=== PATIENT | female | born 1995 | race Two or more races ===

== ENCOUNTER 2019-06-14 22:05 | Emergency (ER) | payer OTHER ==
[2019-06-14] MEDS ORDERED: ONDANSETRON 4 MG TAB.RAPDIS PO ONE (22:24)
--- NOTE | 2019-06-14 22:28 | ER Document Report ---
ED Medical Screen (RME) - General Chief Complaint: Abdominal Pain Stated Complaint: ABDOMINAL PAIN Time Seen by Provider: 06/14/19 22:22 Mode of Arrival: Ambulatory Information source: Patient Notes: 24-year-old female presents to ED for complaint of abdominal pain epigastric since 1 PM. She states then it is now starting to go to the left. She states she is vomited times twice. She states she has had no urinary symptoms. She states food did make it where she had a club soda and some big chips. Last menstrual period was 3 weeks ago. 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 Mother states this is her only medical history I have greeted and performed a rapid initial assessment of this patient. A comprehensive ED assessment and evaluation of the patient, analysis of test results and completion of medical decision making process will be conducted by an additional ED providers. - Related Data Allergies/Adverse Reactions: No Known Allergies Allergy (Verified 06/14/19 22:19) Physical Exam - Vital signs Vitals: Temp Pulse Resp BP Pulse Ox 97.8 F 78 18 124/68 100 06/14/19 22:11 06/14/19 22:11 06/14/19 22:11 06/14/19 22:11 06/14/19 22:11 Course - Vital Signs Vital signs: Temp Pulse Resp BP Pulse Ox 97.8 F 78 18 124/68 100 06/14/19 22:11 06/14/19 22:11 06/14/19 22:11 06/14/19 22:11 06/14/19 22:11 - Laboratory Result Diagrams: 06/14/19 22:30 06/14/19 22:30 Laboratory results interpreted by me: 06/14/19 22:30 WBC 10.8 H Eos % (Auto) 7.0 H Absolute Eos (auto) 0.8 H
[2019-06-14 22:42] LABS: ABSOLUTE BASOPHILS # (AUTO) 0.1 10^3/uL (0.0-0.2); ABSOLUTE EOSINOPHILS # (AUTO) 0.8 10^3/uL (0.0-0.6); ABSOLUTE LYMPHOCYTES (AUTO) 2.6 10^3/uL (0.5-4.7); ABSOLUTE MONOCYTES (AUTO) 0.6 10^3/uL (0.1-1.4); ABSOLUTE NEUT (AUTO) 6.7 10^3/uL (1.7-8.2); BASOPHILS % (AUTO) 0.9 % (0-2); HEMATOCRIT 39.6 % (36.0-47.0); HEMOGLOBIN 13.4 g/dL (12.0-15.5); LYMPHOCYTES % (AUTO) 23.9 % (13-45); MEAN CORPUSCULAR HEMOGLOBIN 29.9 pg (27.0-33.4); MEAN CORPUSCULAR HGB CONC 33.8 g/dL (32.0-36.0); MEAN CORPUSCULAR VOLUME 89 fl (80-97); MONOCYTES % (AUTO) 5.9 % (3-13); PLATELET COUNT 310 10^3/uL (150-450); RED BLOOD COUNT 4.47 10^6/uL (3.72-5.28); RED CELL DISTRIBUTION WIDTH 13.2 % (11.5-14.0); SEGMENTED NEUTROPHILS % (AUTO) 62.3 % (42-78); TOTAL CELLS COUNTED % (AUTO) 100 %; WHITE BLOOD COUNT 10.8 10^3/uL (4.0-10.5)
[2019-06-14 23:03] LABS: ALKALINE PHOSPHATASE 46 U/L (38-126); ANION GAP 13 (5-19); ASPARTATE AMINO TRANSFERASE 21 U/L (14-36); BILIRUBIN,DIRECT 0.1 mg/dL (0.0-0.4); BILIRUBIN,TOTAL 0.8 mg/dL (0.2-1.3); BLOOD UREA NITROGEN 9 mg/dL (7-20); CARBON DIOXIDE 25 mmol/L (22-30); CHLORIDE 103 mmol/L (98-107); GLUCOSE 94 mg/dL (75-110); POTASSIUM 4.5 mmol/L (3.6-5.0); TOTAL PROTEIN 8.3 g/dL (6.3-8.2)
[2019-06-14] MEDS ORDERED: ONDANSETRON HCL INJ/PF 4 MG/2 ML SDV IV ONE (23:20)
[2019-06-14] MEDS ORDERED: FAMOTIDINE INJ/PF 20 MG/2 ML SDV IV ONE (23:21)
[2019-06-14] MEDS ORDERED: DICYCLOMINE HCL 20 MG TABLET PO ONE (23:21)
--- NOTE | 2019-06-14 23:25 | ER Document Report ---
ED General - General Chief Complaint: Abdominal Pain Stated Complaint: ABDOMINAL PAIN Time Seen by Provider: 06/14/19 22:22 Mode of Arrival: Ambulatory TRAVEL OUTSIDE OF THE [place] IN LAST 30 DAYS: No - HPI Notes: 24-year-old female presents with abdominal pain. Relatively rapid onset of supraumbilical midline abdominal pain around 1 PM. Waxing and waning throughout the day but not getting better. Sometimes worse motion, sometimes worse with eating although she only ate once. No history of prior episodes. No frequency urgency or dysuria. No fever. No diarrhea. No recent travel. Last normal menstruation was approximately 3 weeks ago. No other modifying factors, no other associated symptoms, no other provocative or palliative factors. - Related Data Allergies/Adverse Reactions: No Known Allergies Allergy (Verified 06/14/19 22:19) Past Medical History - General Information source: Patient - Social History Smoking Status: Never Smoker Chew tobacco use (# tins/day): No Frequency of alcohol use: None Drug Abuse: None Family History: Reviewed & Not Pertinent Patient has suicidal ideation: No Patient has homicidal ideation: No - Medical History Medical History: Other Notes: Remote history of HSP Review of Systems - Review of Systems Notes: Review of systems as in the history of present illness, otherwise negative x 10 systems. Physical Exam - Vital signs Vitals: Temp Pulse Resp BP Pulse Ox 97.8 F 78 18 124/68 100 06/14/19 22:11 06/14/19 22:11 06/14/19 22:11 06/14/19 22:11 06/14/19 22:11 - Notes Notes: General: Well developed . HEENT: Normocephalic, atraumatic. Pupils equal round reactive to light. No JVD. Chest: No trauma. Respiratory: Good air exchange, normal excursion. Cardiac: Regular rhythm. No murmurs or gallops. Abdomen: Soft, benign. On distracted examination there is minimal epigastric and right upper quadrant tenderness r. Back: No asymmetry or gross abnormality. Motor: Grossly normal power and tone. Neurologic: Alert, nonfocal. Cranial nerves II-12 are intact. Sensation intact. Vascular: Well perfused. Normal peripheral pulses. Skin: No petechiae or purpura. Course - Re-evaluation Re-evalutation: 06/14/19 23:24 Patient was evaluated by the [facility] provider prior to my evaluation. Studies / interventions have been ordered by this provider and may still be pending. 24-year-old female with epigastric and right upper quadrant pain and tenderness. Broad official diagnosis includes underlying biliary tract disease, peptic ulcer disease, gastritis, doubt appendicitis, doubt obstetrical emergency. We will proceed with serial exams, basic laboratory evaluation, fluids, antiemetics and analgesics, reassess. Right upper quadrant ultrasound. 06/15/19 01:10 Labs reviewed, CBC, chemistries, lipase unremarkable. Ultrasound shows no evidence of acute abnormality. Patient had modest improvement does continue to have symptoms but serial exam showed benign abdomen. This point I believe she is safe for discharge home with close outpatient follow-up. She will return immediately if substantial worsening or fever. I suspect she may have an element of gastritis or peptic ulcer disease in light of this we will trial her on Protonix, Carafate. - Vital Signs Vital signs: Temp Pulse Resp BP Pulse Ox 97.8 F 78 18 124/68 100 06/14/19 22:11 06/14/19 22:11 06/14/19 22:11 06/14/19 22:11 06/14/19 22:11 - Laboratory Result Diagrams: 06/14/19 22:30 06/14/19 22:30 Laboratory results interpreted by me: 06/14/19 06/14/19 06/14/19 22:30 22:30 23:21 WBC 10.8 H Eos % (Auto) 7.0 H Absolute Eos (auto) 0.8 H Total Protein 8.3 H Urine Ketones 80 H Urine Blood SMALL H Discharge - Discharge Clinical Impression: Abdominal pain Qualifiers: Abdominal location: unspecified location Qualified Code(s): R10.9 - Unspecified abdominal pain Condition: Stable Disposition: HOME, SELF-CARE Instructions: Abdominal Pain ([facility]) Additional Instructions: You should see your primary care doctor in follow-up over the next 1 to 2 days, return if fever or worsening symptoms. Prescriptions: Sucralfate [Carafate 1 gm Tablet] 1 gm PO ACHS #120 tablet Pantoprazole Sodium [Protonix] 40 mg PO DAILY #30 tablet.
[2019-06-14] MEDS ORDERED: FAMOTIDINE 20 MG TABLET PO ONE (23:34)
[2019-06-15] MEDS ORDERED: MAG HYDROX/AL HYDROX/SIMETH SUSP 30 ML UDCUP PO ONE (00:27)
[2019-06-15] MEDS ORDERED: LIDOCAINE 2% VISCOUS SOLN 20 ML UDCUP PO ONE (00:27)
[2019-06-15] MEDS ORDERED: METOCLOPRAMIDE HCL ORAL SOLN 10 MG/10 ML UDCUP PO ONE (00:27)
--- NOTE | 2019-06-15 00:37 | RADIOLOGY REPORT (SQ) ---
EXAM: Ultrasound abdomen limited CLINICAL DATA: 24-year-old female with right upper quadrant pain. TECHNICAL DATA: Limited sonographic imaging of the right upper quadrant was performed on 06/15/2019 at 12:19 AM. Comparison: None. FINDINGS: The liver is normal in size and configuration. The liver demonstrates normal echogenicity No focal hepatic abnormalities are identified. Doppler imaging reveals patency of the portal vein and normal hepatopedal flow. The gallbladder is well distended and normal in appearance. The gallbladder wall measures approximately 3.5 mm which may be an overestimation. There is no evidence of cholelithiasis or pericholecystic fluid. No sonographic Abraham sign was detected by the technologist. The common bile duct measures 2 mm in diameter. There is no evidence of biliary ductal dilatation. The right kidney is normal in size, shape and echogenicity without hydronephrosis or definite nephrolithiasis. The right kidney measures 11.3 x 4.5 x 5.4 cm. There is no evidence of free fluid in the abdomen. The pancreas is normal in size, shape and echogenicity. The aorta is normal in caliber and contour. IMPRESSION: 1. Normal right upper quadrant ultrasound. 2. The gallbladder wall measurement of 3.5 mm is likely an overestimation. There is no evidence of cholelithiasis, pericholecystic fluid, biliary ductal dilatation or positive sonographic Abraham sign.
[2019-06-15 00:48] LABS: APPEARANCE,URINE CLEAR; BILIRUBIN,URINE NEGATIVE (NEGATIVE); COLOR,URINE YELLOW; GLUCOSE, URINE NEGATIVE (NEGATIVE); KETONES,URINE 80 mg/dL (NEGATIVE); LEUKOCYTE ESTERASE,URINE NEGATIVE (NEGATIVE); NITRITE,URINE NEGATIVE (NEGATIVE); PROTEIN,URINE NEGATIVE (NEGATIVE); UROBILINOGEN,URINE NEGATIVE mg/dL (<2.0)
[2019-06-15 01:35] VITALS: BP 105/67
== END 2019-06-15 01:35 | disposition home or self-care (01) ==
LOC: EDBD → ER 22:05
DX: R10.13 Epigastric pain (principal); R10.11 Right upper quadrant pain
CPT/HCPCS: 36415; 83690; 84703; 85025; 80053; 81001; 76705; J3490 ×2; S0119; 99284